=== PATIENT | female | born 1985 | race Caucasian/White ===

== ENCOUNTER 2017-08-21 08:12 | Observation (INO) | payer MEDICAID, OTHER ==
[~2017-08-21] VITALS: Ht 157.5 cm; Wt 82.7 kg
[2017-08-21] VITALS (21 sets, daily range): BP systolic 92–109; BP diastolic 50–70; PULSE 60–104; RESP 12–18; Ht 157.5 cm; Wt 82.7 kg
[~2017-08-21 08:12] MED LIST: CEFAZOLIN 1 GM INJ ONE; ROCURONIUM 50 MG INJ ONE
[2017-08-21 09:25] LABS: BASOPHIL # 0.1 10^3/ul (0.0-0.1); BASOPHILS % 0.6 % (0.0-2.0); EOSINOPHILS # 0.1 10^3/ul (0.0-0.5); EOSINOPHILS % 0.6 % (0.0-7.0); HEMATOCRIT 38.6 % (37.0-47.0); LYMPHOCYTES % 25.7 % (15.0-51.0); MEAN CORPUSCULAR HGB CONC 33.7 g/dl (32.0-37.0); MEAN CORPUSCULAR VOLUME 95.1 fl (82.0-101.0); MEAN PLATELET VOLUME 10.2 fl (7.4-10.4); MONOCYTE # 0.5 10^3/ul (0.3-0.9); NEUTROPHIL # 5.1 10^3/ul (1.6-7.5); NEUTROPHILS % 65.7 % (39.0-77.0); PLATELET COUNT 327 10^3/UL (140-415); RED BLOOD COUNT 4.06 10^6/ul (4.20-5.40); RED CELL DISTRIBUTION WIDTH 12.2 % (11.5-14.5); WHITE BLOOD COUNT 7.7 10^3/ul (4.8-10.8)
[2017-08-21] MEDS ORDERED: BUPIVACAINE 0.5%/EPI (SDV) 30 ML INJ ONE (11:17)
[2017-08-21] MEDS ORDERED: PROPOFOL 100 ML ONE (11:26)
[2017-08-21] MEDS ORDERED: LIDOCAINE 2% (SDV) 5 ML INJ ONE (11:26)
[2017-08-21] MEDS ORDERED: FENTAnyl 50 MCG/ML VIAL ONE ×3 (11:26→13:15)
[2017-08-21] MEDS ORDERED: DEXAMETHASONE 4 MG/ML 1 ML INJ ONE (11:27)
[2017-08-21] MEDS ORDERED: FENTAnyl 50 MCG/ML VIAL IV PRN ×2 (11:30)
[2017-08-21] MEDS ORDERED: MIDAZOLAM 1 MG/ML 2 ML INJ IV PRN (11:30)
[2017-08-21] MEDS ORDERED: morphine (1 MG/ML) 10ML SYRINGE IV PRN ×3 (11:30)
[2017-08-21] MEDS ORDERED: KETOROLAC 30 MG INJ IV PRN ×2 (11:30→15:30)
[2017-08-21] MEDS ORDERED: MEPERIDINE 25 MG INJ IV PRN (11:30)
[2017-08-21] MEDS ORDERED: EPHEDrine SULFATE 50 MG/5 ML SYG IV PRN (11:30)
[2017-08-21] MEDS ORDERED: hydrALAzine 20 MG INJ IV PRN (11:30)
[2017-08-21] MEDS ORDERED: OXYCODONE/ACETAMINOPHEN (5/325) TAB PO PRN ×2 (11:30)
[2017-08-21] MEDS ORDERED: DIPHENHYDRAMINE 50 MG INJ IV PRN (11:30)
[2017-08-21] MEDS ORDERED: METOCLOPRAMIDE 10 MG INJ IV PRN (11:30)
[2017-08-21] MEDS ORDERED: LABETALOL HCL 20MG INJ IV PRN (11:30)
[2017-08-21] MEDS ORDERED: ONDANSETRON 4 MG INJ IV PRN ×2 (11:30→15:30)
[2017-08-21] MEDS ORDERED: BUPIVACAINE 0.5%/EPI (SDV) 30 ML INJ INJ ONE (12:01)
[2017-08-21] MEDS ORDERED: ROPIVACAINE 0.5 % 30 ML VIAL ONE (15:15)
--- NOTE | 2017-08-21 15:27 | SIPON ---
Date/Time of Note Date/Time of Note DATE: 08/21/17 TIME: 15:23 Operative Report Preoperative Diagnosis Voluntary Sterilization Postoperative Diagnosis Same Operation/Procedure Performed Minilaparotomy BTL Surgeon Rafael Cooney MD public aid eligibility assistant Hunter Ledesma MD Second assist: PARMJIT JOSÉ MD Anesthesia: general Estimated blood loss: 150 - 200 ml's Transfusion Required none Specimen right and left Fallopian tubes Grafts/Implants none Complications none RAFAEL COONEY MD Aug 21, 2017 15:27
[2017-08-21] MEDS ORDERED: morphine 2 MG INJ IV PRN (15:30)
[2017-08-21] MEDS ORDERED: HYDROCODONE/APAP (5/325) TAB PO PRN (15:30)
[2017-08-21] MEDS ORDERED: KETOROLAC 30 MG INJ ONE (15:31)
[2017-08-21] MEDS ORDERED: ONDANSETRON 4 MG INJ ONE (15:32)
[2017-08-21] MEDS: FENTAnyl 50 MCG/ML VIAL IV PRN ×4 (15:58→16:53)
[2017-08-21] MEDS: HYDROCODONE/APAP (5/325) TAB PO PRN (20:31)
--- NOTE | 2017-08-21 21:40 | PREOPHP ---
DATE OF ADMISSION: 08/21/2017 HISTORY OF PRESENT ILLNESS: A 31-year-old female, 7, para 4, AB 3, last menstrual period July 30, 2017, is admitted for voluntary sterilization. PAST MEDICAL HISTORY: Unremarkable. PAST SURGICAL HISTORY: Unremarkable. ALLERGIES: NO KNOWN ALLERGIES. FAMILY HISTORY: Noncontributory. PHYSICAL EXAMINATION: VITAL SIGNS: Patient is afebrile. Vital signs stable. HEAD, NECK, AND CHEST: Examination within normal limits. ABDOMEN: Soft, nontender, nondistended. Attending exam normal. EXTREMITIES: Examination of extremities within normal limits. NEUROLOGIC: Within normal limits. IMPRESSION: Voluntary sterilization. PLAN: Mini-laparotomy, bilateral tubal ligation. Risks, benefits, and alternatives of procedure were explained to the patient. Patient has been counseled about all of her contraceptive options, including all methods of sterilization. It was explained to the patient that with bilateral tubal ligation, there is a chance of failure, resulting in ectopic and/or intrauterine . After counseling, patient stated she understood and gave informed consent for the procedure. Dictated By: El Villanueva MD /jackie/aida /Document#: [id number]
--- NOTE | 2017-08-21 22:17 | OPR ---
DATE OF OPERATION: 08/21/2017 PREOPERATIVE DIAGNOSIS: Voluntary sterilization. POSTOPERATIVE DIAGNOSIS: Voluntary sterilization. OPERATION PERFORMED: Mini-laparotomy, bilateral tubal ligation. SURGEON: El Villanueva MD AUTO FLEET MAINTENANCE MANAGER: Hunter Ledesma MD INTRAOPERATIVE SIZE CHANGER: Paul Rivera MD ANESTHESIA: General. ANESTHESIOLOGIST: Dr. Porter. OPERATIVE PROCEDURE: Patient was taken to the operating room and placed on the operating table in supine position. After adequate general anesthesia was given, the area was prepared and draped in the usual sterile fashion. Using a scalpel, Pfannenstiel incision was made about 2 fingerbreadths above the symphysis pubis. The incision was carried down to the fascia. The fascia was incised and extended bilaterally with the Bovie. Two Neha's were used to separate the fascia from the muscle. The muscle was dissected in the midline down to the peritoneum. The peritoneum was secured with 2 Janiya's and incised with Metzenbaum scissors. Upon entering the peritoneal cavity, the right fallopian tube was grasped with a Tohatchi clamp and followed to its fimbriated end to confirm its identity. Using 0 plain suture ligature, a 5-cm segment of the right fallopian tube was doubly ligated. Using Metzenbaum scissors, a portion of the right fallopian tube above the ligated area was excised and sent to pathology. The left fallopian tube was grasped in its midportion and followed to its fimbriated end to confirm its identity. Using 0 plain suture ligature, a 5-cm segment of the left fallopian tube was doubly ligated. Using Metzenbaum scissors, a portion of the left fallopian tube was excised and sent to pathology. There was bleeding noted from the mesosalpinx area. Using 2-0 chromic, the mesosalpinx was sutured. There was further bleeding noted in the area. At this point, an intraoperative consultation was made to Dr. Rivera, who scrubbed in the case. Dr. Rivera identified the ureter and noted that the area that was bleeding was away from the ureter. Using 2-0 Monocryl, area of the mesosalpinx was ligated again. After adequate hemostasis was assured, peritoneal cavity was irrigated with warm saline. Peritoneum was closed with 0 chromic. Fascia was closed with 0 Vicryl continuous. Subcutaneous tissue was reapproximated with 2-0 plain. Skin was closed with rm. Estimated blood loss was 200 mL. All counts were correct. Patient tolerated the procedure well. Patient was awakened from anesthesia and transferred to recovery room in stable condition. Dictated By: El Villanueva MD /jackie/aida /Document#: [id number] CHARLY
[2017-08-22] VITALS (11 sets, daily range): BP systolic 82–114; BP diastolic 50–66; PULSE 62–91; RESP 16–20
[2017-08-22] MEDS: HYDROCODONE/APAP (5/325) TAB PO PRN ×3 (02:45→15:52)
[2017-08-22] MEDS: KETOROLAC 30 MG INJ IV PRN ×3 (05:09→19:34)
[2017-08-22 05:27] LABS: BASOPHILS % 0.1 % (0.0-2.0); HEMATOCRIT 34.9 % (37.0-47.0); HEMOGLOBIN 11.4 g/dl (12.0-16.0); LYMPHOCYTES # 1.3 10^3/ul (0.8-2.9); LYMPHOCYTES % 7.3 % (15.0-51.0); MEAN CORPUSCULAR HEMOGLOBIN 31.8 pg (29.0-33.0); MEAN CORPUSCULAR HGB CONC 32.7 g/dl (32.0-37.0); MEAN CORPUSCULAR VOLUME 97.2 fl (82.0-101.0); MEAN PLATELET VOLUME 10.8 fl (7.4-10.4); MONOCYTE # 1.1 10^3/ul (0.3-0.9); NEUTROPHIL # 15.7 10^3/ul (1.6-7.5); NEUTROPHILS % 86.1 % (39.0-77.0); PLATELET COUNT 294 10^3/UL (140-415); RED BLOOD COUNT 3.59 10^6/ul (4.20-5.40); RED CELL DISTRIBUTION WIDTH 12.4 % (11.5-14.5); WHITE BLOOD COUNT 18.2 10^3/ul (4.8-10.8)
--- NOTE | 2017-08-22 19:10 | QN ---
Documentation Comment No complaint Afebrile VSS Abdomen soft ND POD #1 Stable Ambulate Advance diet. RAFAEL COOENY MD Aug 22, 2017 19:10
[2017-08-23] MEDS: HYDROCODONE/APAP (5/325) TAB PO PRN ×2 (01:28→06:45)
[2017-08-23 02:17] VITALS: BP 105/57; RESP 20
[2017-08-23 08:17] VITALS: BP 105/65; RESP 18
[2017-08-23] MEDS ORDERED: IBUPROFEN 800 MG TAB PO PRN (11:30)
[2017-08-23 12:46] LABS: BASOPHIL # 0.1 10^3/ul (0.0-0.1); BASOPHILS % 0.5 % (0.0-2.0); EOSINOPHILS # 0.1 10^3/ul (0.0-0.5); EOSINOPHILS % 1.1 % (0.0-7.0); HEMATOCRIT 34.3 % (37.0-47.0); HEMOGLOBIN 11.2 g/dl (12.0-16.0); LYMPHOCYTES # 2.9 10^3/ul (0.8-2.9); LYMPHOCYTES % 24.8 % (15.0-51.0); MEAN CORPUSCULAR HEMOGLOBIN 32.6 pg (29.0-33.0); MEAN CORPUSCULAR HGB CONC 32.7 g/dl (32.0-37.0); MEAN CORPUSCULAR VOLUME 99.7 fl (82.0-101.0); MEAN PLATELET VOLUME 10.4 fl (7.4-10.4); MONOCYTE # 0.9 10^3/ul (0.3-0.9); MONOCYTES % 8.1 % (0.0-11.0); NEUTROPHIL # 7.5 10^3/ul (1.6-7.5); NEUTROPHILS % 64.9 % (39.0-77.0); PLATELET COUNT 261 10^3/UL (140-415); RED BLOOD COUNT 3.44 10^6/ul (4.20-5.40); RED CELL DISTRIBUTION WIDTH 12.3 % (11.5-14.5); WHITE BLOOD COUNT 11.6 10^3/ul (4.8-10.8)
--- NOTE | 2017-08-24 00:17 | DS ---
Date/Time of Note Date/Time of Note DATE: 08/24/17 TIME: 00:13 Discharge Summary Admission/Discharge Info Admit Date/Time Aug 21, 2017 at 18:37 Discharge Date/Time Aug 23, 2017 at 13:20 Discharge Diagnosis Voluntary sterilization Patient Condition: Stable Procedures minilaparotomy, bilateral tubal ligation Hx of Present Illness voluntary sterilization Hospital Course Patient underwent minilaparotomy bilateral tubal ligation. Post-op course uneventful. Home Meds No Active Prescriptions or Reported Meds Follow-up Plan in one week Primary Care Provider Care Physician No Primary Time spent on discharge: < 30 minutes Pending Labs Laboratory Tests Test 08/23/17 12:14 White Blood Count 11.610^3/ul (4.8-10.8) Red Blood Count 3.4410^6/ul (4.20-5.40) Hemoglobin 11.2g/dl (12.0-16.0) Hematocrit 34.3% (37.0-47.0) Mean Corpuscular Volume 99.7fl (82.0-101.0) Mean Corpuscular Hemoglobin 32.6pg (29.0-33.0) Mean Corpuscular Hemoglobin Concent 32.7g/dl (32.0-37.0) Red Cell Distribution Width 12.3% (11.5-14.5) Platelet Count 79499^3/UL (140-415) Mean Platelet Volume 10.4fl (7.4-10.4) Neutrophils % 64.9% (39.0-77.0) Lymphocytes % 24.8% (15.0-51.0) Monocytes % 8.1% (0.0-11.0) Eosinophils % 1.1% (0.0-7.0) Basophils % 0.5% (0.0-2.0) Nucleated Red Blood Cells % 0.0/100WBC (0.0-0.0) Neutrophils # 7.510^3/ul (1.6-7.5) Lymphocytes # 2.910^3/ul (0.8-2.9) Monocytes # 0.910^3/ul (0.3-0.9) Eosinophils # 0.110^3/ul (0.0-0.5) Basophils # 0.110^3/ul (0.0-0.1) Nucleated Red Blood Cells # 0.010^3/ul (0.0-0.0) RAFAEL COONEY MD Aug 24, 2017 00:17
--- NOTE | 2017-08-25 18:26 | OPR ---
Date/Time of Note Date/Time of Note DATE: 08/25/17 TIME: 18:23 Operative Report Free Text/Dictation OPERATIVE REPORT [facility] Name: Ruba Orona Medical Date: 08/21/17 Preoperative Diagnosis: 1-Desires Sterility Postoperative Diagnosis: 1-Same 2-Anatomic distortion Procedures: 1- Intraoperative consult 2- Bilateral tubal ligation (dictated as a separate procedure by Dr. Villanueva) 3- Control of bleeding 4- Retroperitoneal exploration Salesperson Women'S Dresses: Dr. Rivera Anaesthesia: General Operative findings and recommendations: The patient is a 31- year old female for whom a bilateral salpingectomy was planned. She was taken to the operating room by Kay who performed a the procedure but anatomic distortion was noted and hypervascularity. My opinion about management was requested. Surgical : Reviewed Medical: Reviewed Medications: Reviewed Allergies: Reviewed Family History: Noncontributory Name: Ruba Orona Medical Social History: Noncontributory Intraoperative findings: The patient was initially opened without incident with a low transverse incision and oozing was noted by Dr. Villanueva, especially near the ovaries bilaterally for which I was called as an intraoperative art sales consultant. Initially both areas were irrigated and the retroperitoneum on the right was opened with sharp dissection and the Ligasure, and the ureter identified. Hence the adnexa was mobilized and the salpingectomy that was initiated was completed with the Gyrus bipolar cutting forceps without incident and any small bleeding adjacent to the tubal mesentery was addressed with interrupted 4-0 Monocryl suture. Subsequently the area was confirmed to have hemostasis and the care provided contralateralally. The left retroperitoneum was opened with sharp dissection and the Ligasure, and the ureter identified without incident . Hence the adnexa was mobilized and the salpingectomy that was initiated was completed with the Gyrus bipolar cutting forceps without incident and any small bleeding adjacent to the tubal mesentery was addressed with interrupted 4-0 Monocryl suture. The procedure and closure was completed by Dr. Villanueva. The patient was stable and tolerated the procedure well. Parmjit Rivera M.D. Preoperative Diagnosis as above Postoperative Diagnosis as above Operation/Procedure Performed as above Surgeon see signature line Certified Juvenile Probation Officer as above Anesthesia Type: general Anesthesiologist: FRANCISCO GOINS MD Estimated Blood Loss: 150 - 200 ml's Transfusion none Specimen tubes Grafts/Implants none Tubes/Drains as above Complications none Procedure Description as above PARMJIT RIVERA MD Aug 25, 2017 18:26
== END 2017-08-23 13:20 | disposition home or self-care (01) ==
LOC: SDS 08:12 → MS1 17:30 → SDS 18:37
PROVIDERS: ADMIT Obstetrics & Gynecology; ATTEND Obstetrics & Gynecology
DX: Z30.2 Encounter for sterilization (principal)
CPT/HCPCS: 58600; 84703; 85025; 86850; 86900; 86901; 88302; J0690; J1100; J1885; J2175; J2405; J2795; J3010; Z7500; Z7512; Z7610; G0378

== ENCOUNTER 2018-09-25 10:43 | Day surgery (SDC) | END 2018-09-25 16:25 | disposition home or self-care (01) ==